=== PATIENT | female | born 1995 | race Caucasian/White ===

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

== ENCOUNTER 2017-03-03 16:47 | Emergency (ER) | payer BC ==
--- NOTE | 2017-03-03 18:58 | DR.GENAD ---
HPI - PCP Primary Care Physician: Dr. Beasley - Complaint/Symptoms Chief Complaint:: was running yesterday and jumped over ant bed and fell straight onto collar bone Self Treatment fo Chief Complaint: ibuprofen - Nurses notes reviewed Nurses Notes Review: Yes - Source History Provided: Patient - Mode of Arrival Mode of Arrival: Ambulatory - Timing Onset of Chief Complaint: 03/02/17 PMH - PMH Past Medical History: No (no significant PMH) Past Medical History: Anxiety, Depression Past Surgical History: No - Family History History of Family Medical Conditions: No Family Medical History: Hypertension - Social History Does patient currently use any type of tobacco product: No Have you used tobacco products in the last 12 months: No Type of Tobacco Use: None Does any household member use tobacco: No Alcohol Use: None Do you use any recreational Drugs:: No Lives With: Mom Lives Where: Home - infectious screening In the last 2 months have you had wt loss of >10#?: NO Have you had fever, night sweats or hemotysis?: No Have you traveled outside the country in the last 6 months?: No Isolation: Standard ROS - Review of Systems Constitutional: No Symptoms Reported, See HPI Eyes: No Symptoms Reported, See HPI ENTM: No Symptoms Reported Respiratoy: No Symptoms Reported. negative: Productive Cough, Non-Productive Cough, Orthopnea, Short of Breath, Stridor, Wheezing, Hemoptysis Cardiovascular: No Symptoms Reported Gastrointestinal/Abdominal: No Symptoms Reported Neurological: No Symptoms Reported Musculoskeletal: Right, Shoulder. negative: Chest wall Integumentary: No Symptoms Reported, Bruises (ant rt shoulder contusion) Hematologic/Lymphatic: No Symptoms Reported Endocrine: No Symptoms Reported PE - Vital Signs Vitals: Temperature 96.7 F Pulse Rate 99 Respiratory Rate 20 Blood Pressure 109/64 O2 Sat by Pulse Oximetry 100 - General Limitations: No Limitations General Appearance: Alert, In No Apparent Distress - Head Head Exam: Normal Inspection, Normocephalic - ENT ENT Exam: Normal Exam, Normal Oropharynx - Neck Neck Exam: Normal Inspection, Full ROM, Trachea Midline. negative: Tenderness, Meningismus, Lymphadenopathy - Chest Chest Inspection: Normal Inspection, Symmetric Chest Wall Rise, Tenderness (rt upper chest +TTP) - Respiratory Respiratory Exam: Normal Lung Sounds Bilat, Chest Wall Tenderness. negative: Accessory Muscle Use, Prolonged Expiratory Phase, Respiratory Distress, Stridor Respiratory Exam: Bilateral Clear to Auscultation - Cardiovascular Cardiovascular Exam: Regular Rate, Normal Rhythm. negative: Systolic Murmur, Diastolic Murmur - Abdominal Exam Abdominal Exam: Normal Bowel Sounds, Soft - Extremities Extremities Exam: Other (rt ant shoulder +TTP, by palp c/w rt clavicle fx) - Neurologic Neurological Exam: Alert, Oriented X3 - Psychiatric Psychiatric Exam: Normal Affect, Normal Mood ROR - XRAY XRAY Interpreted by: Radiologist XRAY Findings: displaced rt clavicle fx Procedures - Splinting Splint: shoulder immobilizer - Diagnosis Discharge Problem: Unspecified part of closed fracture of clavicle - Discharge Plan Disposition: 01 HOME, SELF-CARE Condition: Stable Prescriptions: Ketorolac Tromethamine [Toradol Tab] 10 mg PO Q8H PRN #12 tab PRN Reason: Pain - Follow ups/Referrals Follow ups/Referrals: Jey Beasley [Primary Care Provider] - 3 days - Instructions Additional Notes - Additional Notes Additional Notes: pt instructed to f/u Orthopedics as this is a diplaced fx. Pt agrees with plan.
--- NOTE | 2017-03-03 19:50 | RAD ---
Examination: Right shoulder, three views History: Trauma Findings: There is an acute displaced and deforming fracture of the middle 3rd of the clavicle. There is 2.0 cm overriding of fragments with complete caudal displacement of the lateral fragment. No angu lar deformity is noted. The acromioclavicular and glenohumeral joints are preserved. Impression: Deforming and displaced right clavicle fracture. Reported By:
[2017-03-03 20:18] VITALS: BP 110/70
== END 2017-03-03 20:19 | disposition home or self-care (01) | DRG 563 ==
LOC: ER 17:03
DX: S42.001A Fracture of unspecified part of right clavicle, initial encounter for closed fracture (principal); W18.39XA Other fall on same level, initial encounter; Y93.02 Activity, running; Y92.89 Other specified places as the place of occurrence of the external cause
CPT/HCPCS: 73030; 99282